=== PATIENT | male | born 1945 | race Caucasian/White ===

== ENCOUNTER 2021-08-27 05:24 | Day surgery (SDC) | payer MEDICARE, OTHER ==
[~2021-08-27] VITALS: Ht 165.1 cm; Wt 85.0 kg
[~2021-08-27 05:24] MED LIST: APIX5TAB PO; ASPI-1450 PO; FINA-27 PO; FURO40 PO; GLIP10 PO; METF-1211 PO; SACU1TAB PO; SIMV-259 PO; TAMS-13 PO; UMEC1DIS IH
[2021-08-27] MEDS ORDERED: SODIUM CHLORIDE 0.9% 1,000 ML ONE (05:26)
[2021-08-27] MEDS ORDERED: ASPIRIN 81 MG CHEWABLE TABLET ONE (05:28)
[2021-08-27] MEDS ORDERED: DIAZEPAM 5 MG TABLET ONE (05:28)
[2021-08-27] MEDS ORDERED: DiphenhydrAMINE HCL 50 MG CAPSULE ONE (05:28)
[2021-08-27] MEDS ORDERED: SODIUM CHLORIDE 0.9% 1,000 ML IV ONE (05:30)
[2021-08-27 06:26] LABS: GLUCOMETER DEV NAME(LOC) SDS.; GLUCOSE,POINT OF CARE 121 MG/DL (70-110)
[2021-08-27] MEDS ORDERED: IOHEXOL 300 MG/ML 100 ML VIAL ONE ×2 (07:20→09:06)
[2021-08-27] MEDS ORDERED: SODIUM BICARBONATE 50 MEQ/50 ML VIAL ONE (07:20)
[2021-08-27] MEDS ORDERED: IOHEXOL 300 MG/ML 150 ML VIAL ONE (07:20)
[2021-08-27] MEDS ORDERED: HEPARIN SODIUM 1000 UNITS/NS 1,000 ML ONE (07:20)
[2021-08-27] MEDS ORDERED: IOHEXOL 300 MG/ML 50 ML VIAL ONE (07:20)
[2021-08-27] MEDS ORDERED: LIDOCAINE/PF 1% 30 ML VIAL ONE (07:20)
[2021-08-27] MEDS ORDERED: DiphenhydrAMINE HCL 50 MG CAPSULE PO ONE (07:30)
[2021-08-27] MEDS ORDERED: ASPIRIN 81 MG CHEWABLE TABLET PO ONE (07:30)
[2021-08-27] MEDS ORDERED: DIAZEPAM 5 MG TABLET PO ONE (07:30)
[2021-08-27 07:36] VITALS: BP 133/66
[2021-08-27] MEDS ORDERED: FentaNYL CITRATE PF 100 MCG/2 ML VIAL ONE (07:39)
[2021-08-27] MEDS ORDERED: MIDAZOLAM HCL 2 MG/2 ML VIAL ONE (07:40)
[2021-08-27] MEDS ORDERED: FentaNYL CITRATE PF 100 MCG/2 ML VIAL IVP ONE ×2 (08:00→08:30)
[2021-08-27] MEDS ORDERED: LIDOCAINE 1% 30 ML/SOD BICARB 8.4% 4 ML SQ ONE (08:00)
[2021-08-27] MEDS ORDERED: IOHEXOL 300 MG/ML 150 ML VIAL IARTER ONE (08:00)
[2021-08-27] MEDS ORDERED: MIDAZOLAM HCL 2 MG/2 ML VIAL IVP ONE (08:00)
[2021-08-27] MEDS ORDERED: HEPARIN SODIUM 1000 UNITS/NS 1,000 ML IARTER ONE (08:00)
[2021-08-27] MEDS ORDERED: SODIUM CHLORIDE 0.9% 500 ML IV ONE (08:00)
[2021-08-27] MEDS ORDERED: HEPARIN SODIUM,PORCINE 5,000 UNITS/ML VIAL IVP ONE (08:15)
[2021-08-27] MEDS ORDERED: IOHEXOL 300 MG/ML 100 ML VIAL IARTER ONE (09:15)
[2021-08-27 09:26] VITALS: BP 124/77
[2021-08-27] MEDS ORDERED: TICAGRELOR 90 MG TABLET ONE ×3 (09:27→13:09)
[2021-08-27] MEDS ORDERED: NITROGLYCERIN/D5W 50 MG/250 ML IV BOTTLE ICOR ONE (09:30)
[2021-08-27] MEDS ORDERED: TICAGRELOR 90 MG TABLET PO ONE ×2 (09:30→15:00)
== END 2021-08-27 15:25 | disposition home or self-care (01) ==
LOC: CATHLAB 05:24
PROVIDERS: ATTEND Internal Medicine Interventional Cardiology
DX: I25.10 Atherosclerotic heart disease of native coronary artery without angina pectoris (principal); R07.9 Chest pain, unspecified; F17.210 Nicotine dependence, cigarettes, uncomplicated; J44.9 Chronic obstructive pulmonary disease, unspecified; I10 Essential (primary) hypertension; I25.2 Old myocardial infarction; E11.9 Type 2 diabetes mellitus without complications; E78.00 Pure hypercholesterolemia, unspecified; I42.9 Cardiomyopathy, unspecified; Z82.49 Family history of ischemic heart disease and other diseases of the circulatory system; Z98.890 Other specified postprocedural states; Z79.899 Other long term (current) drug therapy; Z72.89 Other problems related to lifestyle
CPT/HCPCS: 82962; 92978; 93005; 93458; 99152; 99153; C1757; C1760; C1874; C1887; C9600; J1644; J2250; J3010; J3490 ×2; J7030; Q9967 ×3; 75960; 92920; 92928